=== PATIENT | female | born 1990 | race Caucasian/White ===

== ENCOUNTER 2016-11-16 10:04 | Emergency (ER) | payer OTHER ==
[~2016-11-16 10:04] MED LIST: NO MEDICATIONS
== END 2016-11-16 11:00 | disposition home or self-care (01) ==
LOC: SED 10:04
DX: S39.012A Strain of muscle, fascia and tendon of lower back, initial encounter (principal); M54.40 Lumbago with sciatica, unspecified side; X50.9XXA Other and unspecified overexertion or strenuous movements or postures, initial encounter
CPT/HCPCS: 96372; 99283; J1885